=== PATIENT | male | born 1985 | race Caucasian/White ===

== ENCOUNTER 2017-12-10 17:59 | Emergency (ER) | payer MEDICAID ==
[~2017-12-10] VITALS: Ht 170.2 cm; Wt 58.8 kg
[~2017-12-10 17:59] MED LIST: GUAI120015 PO; IBUP-1986 PO; PANT40TA39 PO
[2017-12-10 18:04] VITALS: BP 140/86
[2017-12-10] MEDS ORDERED: FAMO-128 PO (18:47)
[2017-12-10] MEDS ORDERED: PENI500T2 PO (18:47)
== END 2017-12-10 19:03 | disposition home or self-care (01) ==
LOC: ER 17:59
DX: K08.89 Other specified disorders of teeth and supporting structures (principal); G89.29 Other chronic pain; Z79.899 Other long term (current) drug therapy
CPT/HCPCS: 99283

== ENCOUNTER 2018-07-29 15:22 | Emergency (ER) | payer MEDICAID ==
[~2018-07-29] VITALS: Ht 170.2 cm; Wt 66.5 kg
[~2018-07-29 15:22] MED LIST changes: +FAMO-128 PO
[2018-07-29 15:31] VITALS: BP 134/87
[2018-07-29] MEDS ORDERED: AMOX500C2 PO (15:43)
[2018-07-29] MEDS ORDERED: IBUP-1984 PO (15:43)
[2018-07-29] MEDS ORDERED: HYDROcodone/acetaminophen 5mg/325mg tablet PO ONE (15:45)
== END 2018-07-29 15:56 | disposition home or self-care (01) ==
LOC: ER 15:23
DX: S02.5XXA Fracture of tooth (traumatic), initial encounter for closed fracture (principal); G89.29 Other chronic pain; Z79.899 Other long term (current) drug therapy; Z87.11 Personal history of peptic ulcer disease; X58.XXXA Exposure to other specified factors, initial encounter; Y93.89 Activity, other specified; Y92.89 Other specified places as the place of occurrence of the external cause; Y99.8 Other external cause status
CPT/HCPCS: 99283

== ENCOUNTER 2018-08-06 01:55 | Emergency (ER) | payer MEDICAID ==
[~2018-08-06] VITALS: Ht 170.2 cm; Wt 65.5 kg
[2018-08-06 01:06] VITALS: BP 128/74
[~2018-08-06 01:55] MED LIST changes: +AMOX500C2 PO; +IBUP-1984 PO; +PRED20TA PO; +predniSONE 20 mg tablet PO ONE
== END 2018-08-06 02:16 | disposition home or self-care (01) ==
LOC: ER 01:55
DX: L23.9 Allergic contact dermatitis, unspecified cause (principal); R60.9 Edema, unspecified; K04.7 Periapical abscess without sinus; G89.29 Other chronic pain; Z87.11 Personal history of peptic ulcer disease; Z79.899 Other long term (current) drug therapy
CPT/HCPCS: 99283; J7512

== ENCOUNTER 2019-03-06 18:55 | Emergency (ER) | payer MEDICAID ==
[~2019-03-06] VITALS: Ht 170.2 cm; Wt 65.5 kg
[~2019-03-06 18:55] MED LIST changes: -AMOX500C2 PO; -IBUP-1984 PO; -PRED20TA PO; -predniSONE 20 mg tablet PO ONE
[2019-03-06 19:03] VITALS: BP 134/87
[2019-03-06] MEDS ORDERED: DIPH-423 PO (20:19)
[2019-03-06] MEDS ORDERED: HYDR28CR14 TOP (20:19)
[2019-03-06] MEDS ORDERED: diphenhydrAMINE 25mg capsule PO ONE (20:20)
== END 2019-03-06 20:43 | disposition home or self-care (01) ==
LOC: ER 18:56
DX: L30.9 Dermatitis, unspecified (principal); G89.29 Other chronic pain; Z79.899 Other long term (current) drug therapy
CPT/HCPCS: 99282; Q0163

== ENCOUNTER 2019-07-27 16:07 | Emergency (ER) | payer MEDICAID ==
[~2019-07-27] VITALS: Ht 170.2 cm; Wt 79.0 kg
[~2019-07-27 16:07] MED LIST changes: +DIPH-423 PO; +HYDR28CR14 TOP
[2019-07-27] MEDS ORDERED: proparacaine 0.5% ophthalmic drops 15ml EACHEYE ONE (16:50)
[2019-07-27] MEDS ORDERED: ciprofloxacin 0.3% 2.5ml ophthalmic solution RIGHTEYE STA (17:31)
[2019-07-27 18:09] VITALS: BP 126/77
== END 2019-07-27 18:11 | disposition home or self-care (01) ==
LOC: ER 16:08
DX: S05.01XA Injury of conjunctiva and corneal abrasion without foreign body, right eye, initial encounter (principal); G89.29 Other chronic pain; Z87.11 Personal history of peptic ulcer disease; Z79.899 Other long term (current) drug therapy; X58.XXXA Exposure to other specified factors, initial encounter; Y93.89 Activity, other specified; Y92.89 Other specified places as the place of occurrence of the external cause; Y99.9 Unspecified external cause status
CPT/HCPCS: 99283

== ENCOUNTER 2022-01-16 10:48 | Emergency (ER) | payer MEDICAID ==
[~2022-01-16] VITALS: Ht 170.2 cm; Wt 75.0 kg
[2022-01-16] MEDS ORDERED: amox tr/potassium clavulanate 875/125mg TAB PO ONE (11:10)
[2022-01-16] MEDS ORDERED: AMOX-117 PO (11:14)
[2022-01-16 11:27] VITALS: BP 130/88
== END 2022-01-16 11:30 | disposition home or self-care (01) ==
LOC: ER 10:49
DX: S61.452A Open bite of left hand, initial encounter (principal); S41.151A Open bite of right upper arm, initial encounter; G89.29 Other chronic pain; Z87.11 Personal history of peptic ulcer disease; Z72.89 Other problems related to lifestyle; Z79.2 Long term (current) use of antibiotics; Z79.899 Other long term (current) drug therapy; W54.0XXA Bitten by dog, initial encounter; Y93.89 Activity, other specified; Y92.89 Other specified places as the place of occurrence of the external cause; Y99.8 Other external cause status
CPT/HCPCS: 99283